=== PATIENT | male | born 1960 | race Caucasian/White ===

== ENCOUNTER 2018-06-06 07:43 | Day surgery (SDC) | payer OTHER ==
--- OUTSIDE RECORDS SUMMARY | 2018-06-06 07:46 | XMS REPORT ---
:1960 Author Organization eClinicalWorks Care Team Providers Name Role Phone Galindo Mundo Provider Role Unavailable Allergies No Known Allergies Problems Problem Type Condition Code Onset Dates Condition Status Assessment Benign essential hypertension I10 Active Problem Seasonal and perennial allergic J30.9 Active rhinitis Assessment Diabetes mellitus type 2, E11.9 Active uncontrolled, without complications Problem Chewing tobacco nicotine dependence F17.229 Active with nicotine-induced disorder Problem Diverticular disease K57.90 Active Problem Tubulovillous adenoma of colon D12.6 Active Problem Erectile dysfunction N52.9 Active Problem Hyperlipidemia, mixed E78.2 Active Problem Diabetes mellitus type 2, E11.9 Active uncontrolled, without complications Problem Benign essential hypertension I10 Active Assessment Chewing tobacco nicotine dependence F17.229 Active with nicotine-induced disorder Assessment Erectile dysfunction N52.9 Active Assessment Seasonal and perennial allergic J30.9 Active rhinitis Assessment Hyperlipidemia, mixed E78.2 Active Medications Medication Code Code Instructions Start End Status Dosage System Date Date Glyxambi [facility] 77051851610 10mg/5mg By June 12, Active 1 Mouth In AM 2018 Coreg [facility] 20666001205 12.5 MG Orally Active 1 tab BID Metformin HCl [facility] 15684380683 1000 MG Orally Active 1 tablet Twice a day with meals Pravastatin [facility] 93153143370 20 MG Orally Active 1 tablet Sodium Once a day ZyrTEC [facility] 52356400450 10 MG Orally Active 1 tablet Once a day Aspirin 81 [facility] 51991768444 81 MG Orally Active 1 tablet Once a day Results No Known Results Summary Purpose eClinicalWorks Submission
--- OUTSIDE RECORDS SUMMARY | 2018-06-06 07:46 | XMS REPORT ---
:1960 Author Organization e[employer] Care Team Providers Name Role Phone Galindo Mundo Provider Role Unavailable Allergies No Known Allergies Problems Problem Type Condition Code Onset Dates Condition Status Assessment Diabetes mellitus type 2, E11.9 Active uncontrolled, without complications Problem Seasonal and perennial allergic J30.9 Active rhinitis Problem Chewing tobacco nicotine dependence F17.229 Active with nicotine-induced disorder Problem Diverticular disease K57.90 Active Problem Tubulovillous adenoma of colon D12.6 Active Problem Erectile dysfunction N52.9 Active Problem Hyperlipidemia, mixed E78.2 Active Problem Diabetes mellitus type 2, E11.9 Active uncontrolled, without complications Problem Benign essential hypertension I10 Active Assessment Erectile dysfunction N52.9 Active Assessment Seasonal and perennial allergic J30.9 Active rhinitis Assessment Hyperlipidemia, mixed E78.2 Active Assessment Chewing tobacco nicotine dependence F17.229 Active with nicotine-induced disorder Assessment Benign essential hypertension I10 Active Medications Medication Code Code Instructions Start End Status Dosage System Date Date Pravastatin [facility] 26150583131 20 MG Active 1 TABLET Sodium ONCE DAILY Metformin HCl [facility] 25688021371 1000 MG Active 1 TABLET TWICE DAILY Metformin HCl [facility] 79512938397 1000 MG Orally Active 1 tablet Twice a day with meals Glyxambi [facility] 70106470119 10mg/5mg By Active 1 Mouth In AM Pravastatin [facility] 62587426109 20 MG Orally Active 1 tablet Sodium Once a day Aspirin 81 [facility] 67335575091 81 MG Orally Active 1 tablet Once a day ZyrTEC [facility] 02705063930 10 MG Orally Active 1 tablet Once a day Coreg [facility] 88400477330 12.5 MG Orally Active 1 tab BID Results No Known Results Summary Purpose eClinicalWorks Submission
--- OUTSIDE RECORDS SUMMARY | 2018-06-06 07:46 | XMS REPORT ---
:1960 Author Organization eClinicalWorks Care Team Providers Name Role Phone Pepe Medleyh Provider Role Unavailable Allergies, Adverse Reactions, Alerts Substance Reaction Event Type Lisinopril Info Not Available Drug Allergy Problems Problem Type Condition Code Onset Dates Condition Status Problem Hyperlipidemia, mixed E78.2 Active Problem Seasonal and perennial allergic J30.9 Active rhinitis Problem Tubulovillous adenoma of colon D12.6 Active Problem Chewing tobacco nicotine dependence F17.229 Active with nicotine-induced disorder Problem Adult BMI 32.0-32.9 kg/sq m Z68.32 Active Problem Benign essential hypertension I10 Active Problem Erectile dysfunction N52.9 Active Problem Diverticular disease K57.90 Active Problem Diabetes mellitus type 2, E11.9 Active uncontrolled, without complications Assessment Adult BMI 32.0-32.9 kg/sq m Z68.32 Active Assessment Chewing tobacco nicotine dependence F17.229 Active with nicotine-induced disorder Assessment Hyperlipidemia, mixed E78.2 Active Assessment Benign essential hypertension I10 Active Assessment Erectile dysfunction N52.9 Active Assessment Diabetes mellitus type 2, E11.9 Active uncontrolled, without complications Assessment Seasonal and perennial allergic J30.9 Active rhinitis Assessment Well adult on routine health check Z00.00 Active Medications Medication Code Code Instructions Start End Status Dosage System Date Date [facility] 00204834972 10 MG Orally Active 1 tablet Once a day Pravastatin [facility] 00992849520 20 MG Active 1 TABLET Sodium ONCE DAILY Aspirin 81 [facility] 47528921415 81 MG Orally Active 1 tablet Once a day Pravastatin [facility] 30573905264 20 MG Orally Active 1 tablet Sodium Once a day Coreg [facility] 00757204206 12.5 MG Orally Active 1 tab BID Metformin HCl [facility] 96698081444 1000 MG Orally Active 1 tablet Twice a day with meals Glyxambi [facility] 21626231474 10-5 MG Active TAKE 1 TABLET BY MOUTH EVERY MORNING Glyxambi [facility] 83770022163 10mg/5mg By Active 1 Mouth In AM Results No Known Results Summary Purpose eClinicalWorks Submission
--- OUTSIDE RECORDS SUMMARY | 2018-06-06 07:46 | XMS REPORT ---
:1960 Author Organization eClinicalWorks Care Team Providers Name Role Phone ZandraRoberto Provider Role Unavailable Allergies, Adverse Reactions, Alerts Substance Reaction Event Type Lisinopril Info Not Available Drug Allergy Problems Problem Type Condition Code Onset Dates Condition Status Problem Hyperlipidemia, mixed E78.2 Active Problem Seasonal and perennial allergic J30.9 Active rhinitis Assessment Encounter for screening colonoscopy Z12.11 Active Problem Tubulovillous adenoma of colon D12.6 Active Problem Chewing tobacco nicotine dependence F17.229 Active with nicotine-induced disorder Problem Adult BMI 32.0-32.9 kg/sq m Z68.32 Active Problem Benign essential hypertension I10 Active Problem Erectile dysfunction N52.9 Active Problem Diverticular disease K57.90 Active Problem Diabetes mellitus type 2, E11.9 Active uncontrolled, without complications Medications Medication Code Code Instructions Start End Status Dosage System Date Date Metformin HCl [facility] 64342018592 1000 MG Orally Active 1 tablet Twice a day with meals Glyxambi [facility] 52173212345 10mg/5mg By Active 1 Mouth In AM Glyxambi [facility] 65851563697 10-5 MG Active TAKE 1 TABLET BY MOUTH EVERY MORNING Pravastatin [facility] 48734508662 20 MG Active 1 TABLET Sodium ONCE DAILY Coreg [facility] 64115875103 12.5 MG Orally Active 1 tab BID ZyrTEC [facility] 46311728638 10 MG Orally Active 1 tablet Once a day Pravastatin [facility] 19066435045 20 MG Orally Active 1 tablet Sodium Once a day Aspirin 81 [facility] 39957654332 81 MG Orally Active 1 tablet Once a day Results No Known Results Summary Purpose eClinicalWorks Submission
[2018-06-06 08:07] VITALS: TEMP 97.1
[2018-06-06] MEDS: NA CHLORIDE 0.9% 1,000 ML ONE ×2 (08:27→09:24)
[2018-06-06] MEDS ORDERED: PROPOFOL 200 MG/20 ML VIAL IV ONE ×2 (09:19→09:20)
[2018-06-06] MEDS ORDERED: LIDOCAINE 1% MPF 2 ML AMPULE ONE (09:20)
[2018-06-06 10:36] VITALS: BP 102/71; O2SAT 100
--- NOTE | 2018-06-10 16:02 | ENDO RPT ---
[address], [address] COLONOSCOPY PROCEDURE REPORT EXAM DATE: 06/06/2018 PATIENT NAME: Viet Bravo MR #: [id number] BIRTHDATE: 1960 ATTENDING: Roberto De Paz DR STATUS: outpatient ACUTE DIALYSIS NURSE: Nelia Ga and Charis Thibodeaux RN INDICATIONS: The patient is a 58 yr old Male here for a colonoscopy due to history of polyps PROCEDURE PERFORMED: Colonoscopy with biopsy - cold polypectomy and Colonoscopy with snare polypectomy MEDICATIONS: Per Anesthesia. ESTIMATED BLOOD LOSS: None CONSENT: The patient understands the risks and benefits of the procedure and understands that these risks include, but are not limited to: sedation, allergic reaction, infection, perforation and/or bleeding. Alternative means of evaluation and treatment include, among others: physical exam, x-rays, and/or surgical intervention. The patient elects to proceed with this endoscopic procedure. DESCRIPTION OF PROCEDURE: During intra-op preparation period all mechanical medical equipment was checked for proper function. Hand hygiene and appropriate measures for infection prevention was taken. Procedure, possible complications, alternatives including, but not limited to possibility of bleeding, perforation, tear, infection, sepsis, need for surgery, need for blood transfusion, were explained to the patient. After the risks, benefits and alternatives of the procedure were thoroughly explained, Informed consent was verified, confirmed and timeout was successfully executed by the treatment team. The patient was placed in the left lateral position. A digital rectal exam was performed and revealed internal hemorrhoids. After appropriate level of anesthesia, the scope was passed. The EC-[id number] ([id number] endoscope was introduced through the anus and advanced to the cecum, which was identified by both the appendix and ileocecal valve. The quality of the prep was good. The instrument was then slowly withdrawn as the colon was fully examined. Scope withdrawal time was 10 minutes. COLON FINDINGS: A small smooth and polypoid shaped semi-pedunculated polyp with a friable surface was found in the right colon. A polypectomy was performed with a cold snare. The resection was complete, the polyp tissue was completely retrieved and sent to histology. Moderate diverticulosis was noted throughout the entire examined colon. No bleeding was noted from the diverticulosis. Retroflexed views revealed no abnormalities. The scope was then completely withdrawn from the patient and the procedure terminated. ADVERSE EVENTS: There were no complications. IMPRESSIONS: 1. Small semi-pedunculated polyp was found in the right colon; polypectomy was performed with a cold snare 2. Moderate diverticulosis was noted throughout the entire examined colon RECOMMENDATIONS: 1. avoid NSAIDS for 2 weeks 2. await biopsy results 3. follow-up: office 2 week(s) 4. Monitor for any evidence of rectal bleeding. 5. hemorrhoidal hygiene 6. increase dietary water 7. low fiber / diverticular diet RECALL: Return in 1 year(s) for Colonoscopy, pending biopsy results. Pending Biopsy Results Roberto De Paz DR eSigned: Roberto De Paz DR 06/06/2018 9:56 AM cc: CPT CODES: ICD9 CODES: PATIENT NAME: Viet Bravo MR#: [id number]
== END 2018-06-06 10:25 | disposition home or self-care (01) ==
LOC: OR 07:43
PROVIDERS: ATTEND Surgery
PROC: 0DBK8ZX Excision of Ascending Colon, Via Natural or Artificial Opening Endoscopic, Diagnostic (ICD-10-PCS; principal; 2018-06-06 09:15)
DX: D12.2 Benign neoplasm of ascending colon (principal); K64.8 Other hemorrhoids; K57.30 Diverticulosis of large intestine without perforation or abscess without bleeding; Z80.0 Family history of malignant neoplasm of digestive organs; E11.9 Type 2 diabetes mellitus without complications; E78.2 Mixed hyperlipidemia; I10 Essential (primary) hypertension; F17.220 Nicotine dependence, chewing tobacco, uncomplicated; Z79.84 Long term (current) use of oral hypoglycemic drugs; Z79.82 Long term (current) use of aspirin; Z79.899 Other long term (current) drug therapy
CPT/HCPCS: 82962; 88305; J2001; J2704; J7030

== ENCOUNTER 2020-12-22 10:19 | Day surgery (SDC) | payer OTHER ==
[2020-12-22] MEDS ORDERED: NA CHLORIDE 0.9% 1,000 ML ONE (11:13)
[2020-12-22 11:29] VITALS: TEMP 98.4; O2SAT 97
[2020-12-22] MEDS ORDERED: propofoL 200 MG/20 ML VIAL IV ONE (12:01)
[2020-12-22] MEDS ORDERED: LIDOCAINE 1% MPF 5 ML VIAL ONE (12:01)
--- NOTE | 2020-12-22 12:01 | ENDO RPT ---
[address], [address] COLONOSCOPY PROCEDURE REPORT EXAM DATE: 12/22/2020 PATIENT NAME: Viet Bravo MR #: [id number] BIRTHDATE: 1960 ATTENDING: Roberto De Paz DR STATUS: outpatient KETTLE COOK: Lindsay Mace RN and Lorie Careyangelo Ga INDICATIONS: The patient is a 60 yr old Male here for a colonoscopy due to colon cancer screening PROCEDURE PERFORMED: Colonoscopy and Screening Colonoscopy MEDICATIONS: Per Anesthesia. ESTIMATED BLOOD LOSS: None CONSENT: The patient understands the risks and benefits of the procedure and understands that these risks include, but are not limited to: sedation, allergic reaction, infection, perforation and/or bleeding. Alternative means of evaluation and treatment include, among others: physical exam, x-rays, and/or surgical intervention. The patient elects to proceed with this endoscopic procedure. DESCRIPTION OF PROCEDURE: During intra-op preparation period all mechanical medical equipment was checked for proper function. Hand hygiene and appropriate measures for infection prevention was taken. Procedure, possible complications, alternatives including, but not limited to possibility of bleeding, perforation, tear, infection, sepsis, need for surgery, need for blood transfusion, were explained to the patient. After the risks, benefits and alternatives of the procedure were thoroughly explained, Informed consent was verified, confirmed and timeout was successfully executed by the treatment team. The patient was placed in the left lateral position. A digital rectal exam was performed and revealed internal hemorrhoids, A digital rectal exam was performed and revealed external hemorrhoids, A digital rectal exam was performed and revealed several skin tags, and A digital rectal exam was performed and revealed an enlarged prostate. After appropriate level of anesthesia, the scope was passed. The EC-[id number] ([id number]) endoscope was introduced through the anus and advanced to the cecum, which was identified by both the appendix and ileocecal valve. The quality of the prep was fair. The instrument was then slowly withdrawn as the colon was fully examined. Scope withdrawal time was 8 minutes. COLON FINDINGS: Mild diverticulosis was noted throughout the entire examined colon. No bleeding was noted from the diverticulosis. Small internal and external hemorrhoids were found. Retroflexed views revealed no abnormalities. The scope was then completely withdrawn from the patient and the procedure terminated. ADVERSE EVENTS: There were no complications. IMPRESSIONS: 1. Mild diverticulosis was noted throughout the entire examined colon 2. Small internal and external hemorrhoids RECOMMENDATIONS: 1. avoid NSAIDS for 2 weeks 2. Monitor for any evidence of rectal bleeding. 3. yearly hemoccult starting in 4 years 4. hemorrhoidal hygiene 5. increase dietary water 6. low fiber / diverticular diet RECALL: Return in 5 year(s) for Colonoscopy. Roberto De Paz DR eSigned: Roberto De Paz DR 12/22/2020 12:00 PM cc: CPT CODES: ICD9 CODES: PATIENT NAME: Viet Bravo MR#: [id number]
[2020-12-22 12:39] VITALS: BP 103/77
== END 2020-12-22 12:33 | disposition home or self-care (01) ==
LOC: OR 10:19
PROVIDERS: ATTEND Surgery
PROC: 0DJD8ZZ Inspection of Lower Intestinal Tract, Via Natural or Artificial Opening Endoscopic (ICD-10-PCS; principal; 2020-12-22 11:30)
DX: Z12.11 Encounter for screening for malignant neoplasm of colon (principal); Z86.010 Personal history of colon polyps; Z20.822 Contact with and (suspected) exposure to COVID-19; K64.8 Other hemorrhoids; K64.4 Residual hemorrhoidal skin tags; N40.0 Benign prostatic hyperplasia without lower urinary tract symptoms; K57.30 Diverticulosis of large intestine without perforation or abscess without bleeding
CPT/HCPCS: 82947; 45378; U0003; J2704; J7030